=== PATIENT | female | born 1995 | race Asian ===

== ENCOUNTER 2018-03-13 18:41 | Emergency (ER) | payer BC ==
[~2018-03-13] VITALS: Ht 167.6 cm; Wt 87.1 kg
[2018-03-13 19:07] VITALS: Ht 167.6 cm; Wt 87.1 kg
[2018-03-13 19:53] LABS: BASOPHIL % 0.4 % (0-2); PLATELET COUNT 295 x10^3mcL (130-400); RED CELL DISTRIBUTION WIDTH 13.9 % (11.5-14.5)
[2018-03-13 20:43] VITALS: BP 117/71
[2018-03-13] MEDS ORDERED: COG1 PO (21:46)
[2018-03-13] MEDS ORDERED: BENADRYL ALLERG25 M1 PO (21:47)
[2018-03-13] MEDS ORDERED: KLONOPIN0.5 MG PO (21:47)
[2018-03-13] MEDS ORDERED: ZES10 PO (21:48)
[2018-03-13] MEDS ORDERED: SEROQUEL100 MG PO (21:48)
[2018-03-13] MEDS ORDERED: HYDROCHLOROTHIA25 MG PO (21:48)
[2018-03-13] MEDS ORDERED: SEROQUEL25 MG PO ×2 (21:49→21:50)
[2018-03-13] MEDS ORDERED: LAMISIL AT JOCK IT1% TOP (21:51)
== END 2018-03-13 22:01 | disposition home or self-care (01) ==
LOC: ED 18:41
PROVIDERS: Emergency Medicine
DX: O20.0 Threatened abortion (principal)
CPT/HCPCS: 36415